=== PATIENT | male | born 1935 | race Caucasian/White ===

== ENCOUNTER 2017-02-18 14:16 | Emergency (ER) | payer MEDICARE, OTHER ==
--- NOTE | 2017-02-25 18:56 | ER ---
ADMIT: 02/18/2017 RM/LOC: ER [facility] MR#: [id number] [address] [id number] [address] [address] Emergency Room Report SEX: M AGE: 81 : 1935 DATE: 02/18/2017 ADDENDUM: An 81-year-old white male coming in with right hip pain. 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 He can say God damn it, and that is about it. Pain with any movement to right hip. X-ray shows a femoral neck fracture on the right. He had significant residual from his stroke in the past. He is anticoagulated. He did not hit his head. He has no other associated findings. At this time, this was all an unwitnessed fall. He will be either admitted here or transferred to the [place]. We will get blood work on him while we are waiting. I did speak with his son, Tyler. He said he is a [facility], so we will go from there as to what the [facility] wants. Karel Bah MD/ derrick JOB #: [id number] CC: Karel Bah MD, Attending Physician
== END 2017-02-18 19:03 ==
LOC: ER 14:16
DX: S72.001A Fracture of unspecified part of neck of right femur, initial encounter for closed fracture (principal); I10 Essential (primary) hypertension; E11.9 Type 2 diabetes mellitus without complications; I25.10 Atherosclerotic heart disease of native coronary artery without angina pectoris; E03.9 Hypothyroidism, unspecified; Z79.01 Long term (current) use of anticoagulants; Z79.82 Long term (current) use of aspirin; Z86.73 Personal history of transient ischemic attack (TIA), and cerebral infarction without residual deficits; Z85.828 Personal history of other malignant neoplasm of skin; Z88.8 Allergy status to other drugs, medicaments and biological substances; Z79.4 Long term (current) use of insulin; W19.XXXA Unspecified fall, initial encounter; Y92.129 Unspecified place in nursing home as the place of occurrence of the external cause